=== PATIENT | female | born 1955 | race Caucasian/White ===

== ENCOUNTER 2016-11-17 08:35 | Day surgery (SDC) | payer OTHER ==
[~2016-11-17] VITALS: Ht 162.6 cm; Wt 113.4 kg
[~2016-11-17 08:35] MED LIST: BUPIVACAINE-EPI 0.5%-1:200000 50 ML VIAL. ONE; HYDROmorphone 2 MG/ML VIAL IV PRN; IOHEXOL 300 MG/ML 50 ML VIAL. ONE; IV RINGERS,LACTATED 1000ML 1,000 ML IV SCH; LIDOCAINE 1% 1 ML SYRINGE. ID PRN; MORPHINE SULFATE 2 MG/ML DISP.SYRIN. IV PRN; ONDANSETRON PF 4 MG/2 ML VIAL. IV PRN; PROCHLORPERAZINE 10 MG/2 ML VIAL. IV PRN; SURGICEL HEMOSTAT 4X8 EACH. ONE; fentaNYL PF VIAL 100 MCG/2 ML VIAL IV PRN
[2016-11-17] MEDS ORDERED: PARO20TA99 PO (09:08)
[2016-11-17] MEDS ORDERED: CRESTOR5 MG PO (09:08)
[2016-11-17] MEDS ORDERED: PROPOFOL 20 ML IV ONE (09:32)
[2016-11-17] MEDS ORDERED: LIDOCAINE 2% PF Vial for OR 5 ML VIAL. ONE (09:32)
[2016-11-17] MEDS ORDERED: DEXAMETHASONE SOD PHOS 20 MG/5 ML VIAL. ONE (09:32)
[2016-11-17] MEDS ORDERED: fentaNYL PF VIAL 100 MCG/2 ML VIAL ONE ×2 (09:32→11:34)
[2016-11-17] MEDS ORDERED: ONDANSETRON PF 4 MG/2 ML VIAL. ONE (09:32)
[2016-11-17] MEDS ORDERED: MIDAZOLAM HCL/PF 2 MG/2 ML VIAL. ONE (09:32)
[2016-11-17] MEDS ORDERED: ROCURONIUM 100 MG/10 ML VIAL. ONE (09:33)
[2016-11-17] MEDS ORDERED: PHENYLEPHRINE in 0.9% NACL PF 1 MG/10 ML DISP.SYRIN. IV ONE (11:27)
[2016-11-17] MEDS ORDERED: ePHEDrine PF IN SALINE 50 MG/5 ML DISP.SYRIN IV ONE (11:43)
[2016-11-17] MEDS ORDERED: GLYCOPYRROLATE 1 MG/5 ML VIAL. ONE (11:44)
[2016-11-17] MEDS ORDERED: NEOSTIGMINE 10 MG/10 ML VIAL. ONE (12:00)
--- NOTE | 2016-11-17 12:06 | RAD ---
Intraoperative cholangiogram, 11/17/2016: History: Cholecystectomy One spot film from surgery is present for review. Contrast has been injected into the cystic duct remnant. 0.39 minutes of fluoroscopy time was utilized. There is extravasation of contrast in the gallbladder fossa region. This may be on a technical basis related to the catheter insertion site in the cystic duct. A true biliary leak cannot be excluded on this single image. The common duct is of normal caliber. There is good flow of contrast into the duodenum. No filling defect is seen in the common duct to suggest a retained calculus. The intrahepatic ducts are incompletely opacified. IMPRESSION: 1. No retained calculus is identified in the common duct. 2. Contrast extravasation in the gallbladder fossa as described above.
[2016-11-17] MEDS ORDERED: OXYC-323 PO (12:22)
--- NOTE | 2016-11-17 12:28 | PDOC ---
BRIEF OPERATIVE NOTE Pre-Op Diagnosis #[id number] cholelithiasis lap martin, ioc k mónica cao ebl 25 ivf 1000 roscoe well to rr stable. JANNETH KELLY MD Nov 17, 2016 12:28
--- NOTE | 2016-11-17 12:55 | OP ---
DATE OF SURGERY: 11/17/2016 PREOPERATIVE DIAGNOSIS: Cholelithiasis. POSTOPERATIVE DIAGNOSIS: Cholelithiasis. PROCEDURE: Laparoscopic cholecystectomy with intraoperative cholangiogram. SURGEON: Janneth Kelly MD. ANESTHESIA: General. ESTIMATED BLOOD LOSS: 25 mL. INTRAVENOUS FLUIDS: 1000 mL. INDICATIONS: The patient is a 61-year-old female with abdominal symptoms consistent with biliary colic. FINDINGS: She had an intraoperative cholangiogram that showed no filling defects. She did have some extravasation on the initial images of contrast from the cystic ductotomy. The catheter was repositioned and the cholangiogram was obtained; however, the extravasated contrast continued to show on images. PROCEDURE IN DETAIL: After informed consent was obtained, the patient was taken to the operating room and placed in supine position. After adequate induction of general anesthesia, she was prepped and draped in usual sterile fashion. An umbilical skin incision was made with a scalpel, subcutaneous tissues with a hemostat. [facility] was used to grab the fascia and lift it anteriorly. Veress was used to gain access to the peritoneal cavity. Low opening pressures confirmed intraperitoneal placement of Veress. Pneumoperitoneum to 15 mmHg was established followed by placement of 5 mm port. A 5 mm 30 degree lens was inserted, which revealed good port placement. No evidence of entry trauma. She was placed head up, rotated towards her left. Three additional ports were placed under direct vision, 1 was an epigastric 11 mm port and 2 were 5 mm right lateral ports. The liver was large and due to her obesity, the gallbladder was small and supple. The fundus of the gallbladder was retracted over liver and slightly towards the right and the infundibulum was retracted towards the right and towards her toes to open the triangle of Calot. The leading peritoneal edge was scored with cautery medially and laterally and carried back towards the liver at the level of the infundibulum. [place] dissector was then used to dissect out the triangle of Calot. At the completion of dissection, 2 structures were seen leading directly to the gallbladder, 1 was a cystic artery, 1 was a cystic duct. The gallbladder dissected away from the cystic plate. The liver could be seen behind the gallbladder. The gallbladder had been carefully dissected away from part of the liver bed with [place] dissector. Two clips were placed on cystic artery proximally, 1 distally and the artery divided sharply. Clip was placed on cystic duct adjacent to the gallbladder. Ductotomy was made with scissors. Intraoperative cholangiogram was performed. There was contrast extravasation visible when the catheter was flushed at the ductotomy site where the catheter inserted into the duct. Cholangiogram images demonstrated this extravasation and there was not good filling of the proximal biliary tree. At this point, I reestablished laparoscopic vision and repositioned the catheter at the leak from the cystic ductotomy, was improved and then the cholangiogram repeated, which showed opacification of the common bile duct, common hepatic, left and right hepatics, intrahepatic radicals and free flow of contrast into the duodenum with no filling defects. The catheter was removed and the cholangiogram was interpreted as normal by myself. The radiologist mentioned the bile leak, but since this was visible on the ductotomy from where the catheter inserted, this was thought to explain the radiographic findings. There was no bile leakage in the gallbladder fossa. No other structures had been divided during the surgery at this point. The gallbladder was removed from the bed of liver with cautery in place in a laparoscopic bag and brought out through the epigastric incision. There was a small vessel in the gallbladder, liver bed interface that was feeding the gallbladder directly that was reinforced with an application of the clip shoe shiner. This was near the body of the gallbladder away from the triangle of Calot. This was done to maintain hemostasis. The gallbladder was placed in laparoscopic bag and was brought out through the epigastric incision. The right upper quadrant was irrigated. There was no bleeding or bile leakage noted. The clips were all securely in place and fascial closure device was used to close the fascia at the epigastric incision using 0 Vicryl suture. The ports removed under direct vision. They were hemostatic. Pneumoperitoneum was desufflated. Skin incisions were closed with 4-0 Monocryl in subcuticular fashion. Sterile dressings were placed. She tolerated the procedure well. There were no apparent complications. She was then transferred in stable condition to the recovery room. JANNETH KELLY MD DR: CHANG/live JOB#: [id number] / [id number] JULIANNA Wilson MD
[2016-11-17 13:44] VITALS: BP 109/40
--- NOTE | 2016-11-18 15:49 | PATHOLOGY ---
PATHOLOGY REPORT * * * * * * * * FINAL DIAGNOSIS: Gallbladder, "gallbladder and contents," cholecystectomy: - Chronic cholecystitis with cholelithiasis. - The attached lymph node reveals reactive changes ([facility]:mgr; 11/18/2016) REPORT ELECTRONICALLY SIGNED BY: Nilson Lugo M.D. DATE/TIME: 11/18/2016 15:48 * * * * * * * * GROSS PATHOLOGY: Received in formalin labeled "Glenys Osorio, gallbladder and contents," is a 6.3 x 2.5 x 1.2 cm, intact gallbladder with purple borrero, smooth serosal surfaces. Opening the gallbladder reveals pink-red, velvety, congested mucosa and an average wall thickness of 0.2 cm. Calculi are present ranging from 0.2-0.4 cm and no masses are noted grossly. Information Resources Director sections from the body and fundus are submitted along with the proximal margin in cassette A1. (JW; 11/17/2016) INITIAL CPT CODE(S): A; 21218 Professional services performed by [facility] [place] [address] Technical services performed by [facility] at [address] [place] [address]. SPECIMEN(S) RECEIVED: A.Gallbladder and contents CLINICAL HISTORY: Calculus of gallbladder without cholecystitis without obstruction PATIENT: GLENYS OSORIO /AGE: 8 1955 (Age: 61) PATIENT #: [id number] ALT CASE #: SPECIMEN COLLECTION DATE: 11/17/2016 SPECIMEN RECEIVED DATE: 11/17/2016 [facility] - [address] [place] [address] - PHONE: [phone] * * * END OF REPORT * * *
== END 2016-11-17 13:44 | disposition home or self-care (01) ==
LOC: SURG 08:35
PROVIDERS: ATTEND Surgery
DX: K80.10 Calculus of gallbladder with chronic cholecystitis without obstruction (principal); E78.00 Pure hypercholesterolemia, unspecified; E66.9 Obesity, unspecified; F41.9 Anxiety disorder, unspecified; Z68.44 Body mass index [BMI] 60.0-69.9, adult; Z72.89 Other problems related to lifestyle; Z88.6 Allergy status to analgesic agent; Z88.0 Allergy status to penicillin; Z87.440 Personal history of urinary (tract) infections
CPT/HCPCS: 47563; 74300; J0690; J1100; J2250; J2370; J2405; J2704; J2710; J3010; J3490; J7030; Q9967; 88304; J2001

== ENCOUNTER 2016-12-07 19:16 | Inpatient (IN) | payer OTHER ==
[~2016-12-07] VITALS: Ht 162.6 cm; Wt 115.4 kg
[~2016-12-07 19:16] MED LIST changes: -BUPIVACAINE-EPI 0.5%-1:200000 50 ML VIAL. ONE; +CRESTOR5 MG PO; -HYDROmorphone 2 MG/ML VIAL IV PRN; -IOHEXOL 300 MG/ML 50 ML VIAL. ONE; -IV RINGERS,LACTATED 1000ML 1,000 ML IV SCH; -LIDOCAINE 1% 1 ML SYRINGE. ID PRN; -MORPHINE SULFATE 2 MG/ML DISP.SYRIN. IV PRN; -ONDANSETRON PF 4 MG/2 ML VIAL. IV PRN; +OXYC-323 PO; +PARO20TA99 PO; -PROCHLORPERAZINE 10 MG/2 ML VIAL. IV PRN; -SURGICEL HEMOSTAT 4X8 EACH. ONE; -fentaNYL PF VIAL 100 MCG/2 ML VIAL IV PRN
[2016-12-07 19:55] LABS: BASO # 0.1 x10^3/uL (0.0-0.2); BASO % 1 % (0-3); EOS % 0 % (0-3); HEMATOCRIT 38.8 % (36.0-47.0); HEMOGLOBIN 12.9 g/dL (12.0-15.5); LYMPH # 1.5 x10^3/uL (1.0-4.8); LYMPH % 19 % (24-48); MEAN CORPUSCULAR HEMOGLOBIN 29 pg (25-35); MEAN CORPUSCULAR HGB CONC 33 g/dL (31-37); MEAN CORPUSCULAR VOLUME 88 fL (79-100); MONO % 6 % (0-9); NEUT % 74 % (31-73); PLATELET COUNT 291 x10^3/uL (140-400); RED BLOOD COUNT 4.42 x10^6/uL (3.50-5.40); RED CELL DISTRIBUTION WIDTH 13.6 % (11.5-14.5); WHITE BLOOD COUNT 8.1 x10^3/uL (4.0-11.0)
[2016-12-07] MEDS ORDERED: ONDANSETRON PF 4 MG/2 ML VIAL. IV ONE (20:15)
[2016-12-07] MEDS ORDERED: IV NORMAL SALINE 1000ML BAG 1,000 ML IV ONE (20:15)
[2016-12-07] MEDS ORDERED: LIDO:MAALOX:DONNATAL 1:1:1 15 ML SINGLE DOSE SWSW ONE (20:15)
[2016-12-07] MEDS ORDERED: MORPHINE SULFATE 10 MG/ML VIAL. IV ONE (20:15)
[2016-12-07] MEDS ORDERED: CONTRAST GIVEN MC PRN (20:30)
[2016-12-07] MEDS ORDERED: IOHEXOL 300 MG/ML 75 ML VIAL IV ONE (20:30)
[2016-12-07 21:34] LABS: CREATININE 0.9 mg/dL (0.6-1.0); GFR 63.4; POTASSIUM 3.5 mmol/L (3.5-5.1)
[2016-12-07 21:39] LABS: ALBUMIN 3.8 g/dL (3.4-5.0); MAGNESIUM 2.2 mg/dL (1.8-2.4); TOTAL BILIRUBIN 1.1 mg/dL (0.2-1.0); TOTAL PROTEIN 7.5 g/dL (6.4-8.2)
--- NOTE | 2016-12-07 22:36 | RAD ---
Exam performed: CT scan of the abdomen and pelvis with contrast Clinical Indication: Severe abdominal pain and vomiting mildly, recent cholecystectomy Date of Service: 12/07/2016 comparison: None available Technique: Contiguous helical acquisitions are obtained from the lung bases to the pelvis during intravenous administration of [75 mL of Isovue-320]. In addition oral contrast was also given. Sagittal and coronal reformatted images were obtained and reviewed. CT abdomen findings: The lung bases appear essentially clear. The visualized heart is normal There is a small approximately 1.0 cm cystic abnormality in the distal body of pancreas (best seen on axial image 30/102). Mild hepatic steatosis. The spleen appears unremarkable. Cholecystectomy Both adrenal glands and bilateral kidneys appear normal with symmetric excretion of contrast via both kidneys. The small bowel loops appear nondilated and unremarkable. Aorta is normal in caliber. There is no retroperitoneal lymphadenopathy or mass lesions. No bowel related inflammatory stranding is noted. Visualized appendix is normal. No obvious stranding is seen in the pericecal region. CT pelvis findings: The pelvic bowel loops are nondilated and unremarkable. The urinary bladder is partially distended and unremarkable. Uterus is anteverted. No adnexal masses. Interrogation of bone windows demonstrates grade 1 anterolisthesis of L5 over S1. Sagittal and coronal reformatted images were obtained and reviewed which demonstrate no additional findings. Impression abdomen and pelvis : 1. Approximately 1.8 cm cystic abnormality in the distal body of pancreas. While benign epithelial cyst is possible, however cystic neoplasm cannot be excluded. Evaluation with MRI abdomen using pancreatic protocol may be of additional benefit. 2. Mild hepatic steatosis PQRS Compliance Statement: One or more of the following individualized dose reduction techniques were utilized for this examination: 1. Automated exposure control 2. Adjustment of the mA and/or kV according to patient size 3. Use of iterative reconstruction technique Electronically signed by: Sabrina Cavazos MD (12/07/2016 10:33 PM) [facility]
[2016-12-08] VITALS (7 sets, daily range): BP systolic 105–138; BP diastolic 50–65
--- NOTE | 2016-12-08 00:07 | PHYS DOC ---
Past Medical History Past Medical History: High Cholesterol Past Surgical History: Cholecystectomy, Tonsillectomy Alcohol Use: Rarely Drug Use: None Adult General Chief Complaint Chief Complaint: NAUSEA/VOMITING/DIARRHA HPI HPI Patient is a 61 year old female presenting to the emergency department for evaluation of epigastric and right upper quadrant abdominal pain that rates towards her back that has been going on for the past several days and now it has become intolerable. She has had nausea and vomiting but normal stools. He describes the emesis as yellow bile. She had a cholecystectomy on November [address] Renteria. Patient denies any fevers chills dysuria hematuria. Patient is nontoxic-appearing but appears uncomfortable. Review of Systems Review of Systems Constitutional: Denies fever or chills [] Eyes: Denies change in visual acuity, redness, or eye pain [] HENT: Denies nasal congestion or sore throat [] Respiratory: Denies cough or shortness of breath [] Cardiovascular: No additional information not addressed in HPI [] GI: + abdominal pain, nausea, vomiting. No bloody stools or diarrhea [] : Denies dysuria or hematuria [] Musculoskeletal: + back pain Integument: Denies rash or skin lesions [] Neurologic: Denies headache, focal weakness or sensory changes [] Current Medications Current Medications Current Medications Medications (Trade) Dose Ordered Sig/Mike Start Time Stop Time Status Last Admin Dose Admin Info (Do NOT chart on this entry -- for MONITORING) 1 each PRN DAILY PRN 12/07/16 20:30 12/09/16 20:29 Iohexol (Omnipaque 300 Mg/ml) 75 ml 1X ONCE 12/07/16 20:30 12/07/16 20:31 DC 12/07/16 20:30 75 ML Morphine Sulfate 5 mg 1X ONCE 12/07/16 20:15 12/07/16 20:16 DC Multi-Ingredient Mouthwash/Gargle (Gi Cocktail Single Dose) 15 ml 1X ONCE 12/07/16 20:15 12/07/16 20:16 DC 12/07/16 20:12 15 ML Ondansetron HCl (Zofran) 8 mg 1X ONCE 12/07/16 20:15 12/07/16 20:16 DC 12/07/16 19:55 8 MG Promethazine HCl 12.5 mg/Sodium Chloride 50.5 ml @ 101 mls/hr 1X ONCE 12/08/16 00:00 12/08/16 00:29 UNV Sodium Chloride 1,000 ml @ 1,000 mls/hr 1X ONCE 12/07/16 20:15 12/07/16 21:14 DC 12/07/16 19:55 1,000 MLS/HR Allergies Allergies Allergies Coded Allergies Type Severity Reaction Last Updated Verified Penicillins Allergy Intermediate Rash 11/17/16 Yes aspirin Allergy Intermediate Unknown 11/17/16 Yes ibuprofen Allergy Intermediate Hives 11/17/16 Yes Physical Exam Physical Exam Constitutional: Well developed, well nourished, no acute distress, non-toxic appearance. [] HENT: Normocephalic, atraumatic, bilateral external ears normal, oropharynx moist, no oral exudates, nose normal. [] Eyes: PERRLA, EOMI, conjunctiva normal, no discharge. [] Neck: Normal range of motion, no tenderness, supple, no stridor. [] Cardiovascular:Heart rate regular rhythm, no murmur [] Lungs & Thorax: Bilateral breath sounds clear to auscultation [] Abdomen: Bowel sounds normal, soft, + RUQ and Epigastric tenderness, no rebound or guarding, no masses, no pulsatile masses. [] Skin: Warm, dry, no erythema, no rash. [] Back: No tenderness, no CVA tenderness. [] Extremities: No tenderness, no cyanosis, no clubbing, ROM intact, no edema. [] Neurologic: Alert and oriented X 3, normal motor function, normal sensory function, no focal deficits noted. [] Current Patient Data Vital Signs Vital Signs Date Time Temp Pulse Resp B/P (MAP) Pulse Ox O2 Delivery O2 Flow Rate FiO2 12/07/16 22:30 68 18 129/62 (84) 97 Room Air 12/07/16 19:27 99.3 99.3 Lab Values Laboratory Tests Test 12/07/16 19:41 White Blood Count 8.1 x10^3/uL (4.0-11.0) Red Blood Count 4.42 x10^6/uL (3.50-5.40) Hemoglobin 12.9 g/dL (12.0-15.5) Hematocrit 38.8 % (36.0-47.0) Mean Corpuscular Volume 88 fL (79-100) Mean Corpuscular Hemoglobin 29 pg (25-35) Mean Corpuscular Hemoglobin Concent 33 g/dL (31-37) Red Cell Distribution Width 13.6 % (11.5-14.5) Platelet Count 291 x10^3/uL (140-400) Neutrophils (%) (Auto) 74 % (31-73) H Lymphocytes (%) (Auto) 19 % (24-48) L Monocytes (%) (Auto) 6 % (0-9) Eosinophils (%) (Auto) 0 % (0-3) Basophils (%) (Auto) 1 % (0-3) Neutrophils # (Auto) 6.0 x10^3uL (1.8-7.7) Lymphocytes # (Auto) 1.5 x10^3/uL (1.0-4.8) Monocytes # (Auto) 0.5 x10^3/uL (0.0-1.1) Eosinophils # (Auto) 0.0 x10^3/uL (0.0-0.7) Basophils # (Auto) 0.1 x10^3/uL (0.0-0.2) Sodium Level 142 mmol/L (136-145) Potassium Level 3.5 mmol/L (3.5-5.1) Chloride Level 106 mmol/L (98-107) Carbon Dioxide Level 28 mmol/L (21-32) Anion Gap 8 (6-14) Blood Urea Nitrogen 15 mg/dL (7-20) Creatinine 0.9 mg/dL (0.6-1.0) Estimated GFR (Cockcroft-Gault) 63.4 BUN/Creatinine Ratio 17 (6-20) Glucose Level 135 mg/dL (70-99) H Calcium Level 10.0 mg/dL (8.5-10.1) Magnesium Level 2.2 mg/dL (1.8-2.4) Total Bilirubin 1.1 mg/dL (0.2-1.0) H Aspartate Amino Transferase (AST) 627 U/L (15-37) H Alanine Aminotransferase (ALT) 711 U/L (14-59) H Alkaline Phosphatase 184 U/L (46-116) H Troponin I Quantitative < 0.017 ng/mL (0.000-0.055) Total Protein 7.5 g/dL (6.4-8.2) Albumin 3.8 g/dL (3.4-5.0) Albumin/Globulin Ratio 1.0 (1.0-1.7) Lipase 280 U/L (73-393) Laboratory Tests 12/07/16 19:41 Laboratory Tests 12/07/16 19:41 EKG EKG [] Radiology/Procedures Radiology/Procedures Exam performed: CT scan of the abdomen and pelvis with contrast Clinical Indication: Severe abdominal pain and vomiting mildly, recent cholecystectomy Date of Service: 12/07/2016 comparison: None available Technique: Contiguous helical acquisitions are obtained from the lung bases to the pelvis during intravenous administration of [75 mL of Isovue-320]. In addition oral contrast was also given. Sagittal and coronal reformatted images were obtained and reviewed. CT abdomen findings: The lung bases appear essentially clear. The visualized heart is normal There is a small approximately 1.0 cm cystic abnormality in the distal body of pancreas (best seen on axial image 30/102). Mild hepatic steatosis. The spleen appears unremarkable. Cholecystectomy Both adrenal glands and bilateral kidneys appear normal with symmetric excretion of contrast via both kidneys. The small bowel loops appear nondilated and unremarkable. Aorta is normal in caliber. There is no retroperitoneal lymphadenopathy or mass lesions. No bowel related inflammatory stranding is noted. Visualized appendix is normal. No obvious stranding is seen in the pericecal region. CT pelvis findings: The pelvic bowel loops are nondilated and unremarkable. The urinary bladder is partially distended and unremarkable. Uterus is anteverted. No adnexal masses. Interrogation of bone windows demonstrates grade 1 anterolisthesis of L5 over S1. Sagittal and coronal reformatted images were obtained and reviewed which demonstrate no additional findings. Impression abdomen and pelvis : 1. Approximately 1.8 cm cystic abnormality in the distal body of pancreas. While benign epithelial cyst is possible, however cystic neoplasm cannot be excluded. Evaluation with MRI abdomen using pancreatic protocol may be of additional benefit. 2. Mild hepatic steatosis PQRS Compliance Statement: One or more of the following individualized dose reduction techniques were utilized for this examination: 1. Automated exposure control 2. Adjustment of the mA and/or kV according to patient size 3. Use of iterative reconstruction technique Electronically signed by: Sabrina Cavazos MD (12/07/2016 10:33 PM) [facility] DICTATED and SIGNED BY: SABRINA CAVAZOS MD DATE: 12/07/162225 Course & Med Decision Making Course & Med Decision Making Patient's pain somewhat improved however she says she is still uncomfortable. I do not have a great excavation for the transaminitis or the pancreatic mass that is visualized on CT. To the patient about inpatient versus outpatient treatment and she said that she is uncomfortable going home given how much pain she is having. Patient will be admitted for further pain control evaluation and treatment. Patient admitted in stable condition. Dragon Disclaimer Dragon Disclaimer This electronic medical record was generated, in whole or in part, using a voice recognition dictation system. Departure Departure Impression: Primary Impression: Pancreatic mass Additional Impressions: Transaminitis Abdominal pain Disposition: ADMITTED INPATIENT Admitting Physician: Kirstin Foley Condition: STABLE Referrals: KIRSTIN FOLEY MD (PCP) Problem Qualifiers AGAPITO YOUNG DO Dec 08, 2016 00:07
[2016-12-08] MEDS ORDERED: fentaNYL PF VIAL 100 MCG/2 ML VIAL IV PRN (00:15)
[2016-12-08] MEDS ORDERED: ONDANSETRON PF 4 MG/2 ML VIAL. IV PRN (00:15)
[2016-12-08] MEDS ORDERED: PROMETHAZINE 12.5 MG in IV NORMAL SALINE 50ML 50 ML IV ONE (00:30)
--- NOTE | 2016-12-08 06:25 | EKG ---
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
--- NOTE | 2016-12-08 08:40 | PDOC2 ---
GI CONSULT Reason For Consult: Transaminitis, pancreatic mass HPI: HPI: 61 y/o female admitted through the ER. Underwent cholecystectomy on 11/17/16. Prior to that had abd US in [place] for sweating and vomiting w/ minimal abd discomfort that reportedly showed cholelithiasis. Gallbladder pathology showed chronic cholecystitis w/ cholelithiasis. IOC was normal. [place] well after surgery - didn't even need pain meds. The night before last, awoke at 1:00 a.m. w/ some upper abd discomfort and vomiting. Emesis contained food and bile , had burning in her throat. Was not able to tolerate much PO for the next 24 hours. Called her surgeon's office, was advised to come to the ER for possible dehydration. ER labs showed normal WBC and lipase w/ elevated LFTs including bili 1.1, AST 627, ALT 711, and Alk Phos 184. CT A/P showed 1.8cm cystic abnormality in the distal body of the pancreas and also noted hepatic steatosis. Currently feeling better w/ just minimal discomfort under ribs. She has labs drawn twice yearly through her work; at one point recalls ALT or AST being minimally elevated; her primary doctor at the time told her not to worry. H/o HLD on statin. Only occasional alcohol use. No h/o blood transfusion, does have tattoo. Also had sick contact w/ "stomach flu" at work. When she was younger she had some issues w/ reflux but this is no longer bothersome. No dysphagia, weight loss, diarrhea, constipation, hematemesis, melena, or hematochezia. Had a large BM prior to onset of symptoms, also had two smaller (formed) stools yesterday. No previous EGD or colonoscopy. No pancreas history. She thinks she had a CT scan of her abdomen a few years ago. PMH: PMH: HLD, anxiety, tonsillectomy, cholecystectomy FH: Family History: Cancer (colon - grandmother), Other (half-sister has reflux) Social History: Smoke: No ALCOHOL: occassional Drugs: None ROS: GEN: Denies fevers, chills, sweats HEENT: Denies blurred vision, sore throat CV: Denies chest pain RESP: Denies shortness of air, cough GI: Per HPI : Denies hematuria, dysuria ENDO: Denies weight changes NEURO: Denies confusion, dizziness MSK: Denies weakness, joint pain/swelling SKIN: Denies jaundice, pruritus Vitals: Vitals: Vital Signs Date Time Temp Pulse Resp B/P (MAP) Pulse Ox O2 Delivery O2 Flow Rate FiO2 12/08/16 07:00 98.2 68 18 105/50 (68) 94 Room Air 98.2 Labs: Labs: Laboratory Tests Test 12/07/16 19:41 White Blood Count 8.1 x10^3/uL (4.0-11.0) Red Blood Count 4.42 x10^6/uL (3.50-5.40) Hemoglobin 12.9 g/dL (12.0-15.5) Hematocrit 38.8 % (36.0-47.0) Mean Corpuscular Volume 88 fL (79-100) Mean Corpuscular Hemoglobin 29 pg (25-35) Mean Corpuscular Hemoglobin Concent 33 g/dL (31-37) Red Cell Distribution Width 13.6 % (11.5-14.5) Platelet Count 291 x10^3/uL (140-400) Neutrophils (%) (Auto) 74 % (31-73) Lymphocytes (%) (Auto) 19 % (24-48) Monocytes (%) (Auto) 6 % (0-9) Eosinophils (%) (Auto) 0 % (0-3) Basophils (%) (Auto) 1 % (0-3) Neutrophils # (Auto) 6.0 x10^3uL (1.8-7.7) Lymphocytes # (Auto) 1.5 x10^3/uL (1.0-4.8) Monocytes # (Auto) 0.5 x10^3/uL (0.0-1.1) Eosinophils # (Auto) 0.0 x10^3/uL (0.0-0.7) Basophils # (Auto) 0.1 x10^3/uL (0.0-0.2) Sodium Level 142 mmol/L (136-145) Potassium Level 3.5 mmol/L (3.5-5.1) Chloride Level 106 mmol/L (98-107) Carbon Dioxide Level 28 mmol/L (21-32) Anion Gap 8 (6-14) Blood Urea Nitrogen 15 mg/dL (7-20) Creatinine 0.9 mg/dL (0.6-1.0) Estimated GFR (Cockcroft-Gault) 63.4 BUN/Creatinine Ratio 17 (6-20) Glucose Level 135 mg/dL (70-99) Calcium Level 10.0 mg/dL (8.5-10.1) Magnesium Level 2.2 mg/dL (1.8-2.4) Total Bilirubin 1.1 mg/dL (0.2-1.0) Aspartate Amino Transf (AST/SGOT) 627 U/L (15-37) Alanine Aminotransferase (ALT/SGPT) 711 U/L (14-59) Alkaline Phosphatase 184 U/L (46-116) Troponin I Quantitative < 0.017 ng/mL (0.000-0.055) Total Protein 7.5 g/dL (6.4-8.2) Albumin 3.8 g/dL (3.4-5.0) Albumin/Globulin Ratio 1.0 (1.0-1.7) Lipase 280 U/L (73-393) Allergies: Coded Allergies: Penicillins (Verified Allergy, Intermediate, Rash, 11/17/16) aspirin (Verified Allergy, Intermediate, Unknown, 11/17/16) ibuprofen (Verified Allergy, Intermediate, Hives, 11/17/16) Medications: Current Medications Medications (Trade) Dose Ordered Sig/Mike Route PRN Reason Start Time Stop Time Status Last Admin Dose Admin Sodium Chloride 1,000 ml @ 1,000 mls/hr 1X ONCE IV 12/07/16 20:15 12/07/16 21:14 DC 12/07/16 19:55 Ondansetron HCl (Zofran) 8 mg 1X ONCE IV 12/07/16 20:15 12/07/16 20:16 DC 12/07/16 19:55 Multi-Ingredient Mouthwash/Gargle (Gi Cocktail Single Dose) 15 ml 1X ONCE SWSW 12/07/16 20:15 12/07/16 20:16 DC 12/07/16 20:12 Iohexol (Omnipaque 300 Mg/ml) 75 ml 1X ONCE IV 12/07/16 20:30 12/07/16 20:31 DC 12/07/16 20:30 Promethazine HCl 12.5 mg/Sodium Chloride 50.5 ml @ 101 mls/hr 1X ONCE IV 12/08/16 00:30 12/08/16 00:59 DC 12/08/16 00:18 Imaging: Imaging: CT A/P 12/07/16 w/ IV contrast Impression abdomen and pelvis : 1. Approximately 1.8 cm cystic abnormality in the distal body of pancreas. While benign epithelial cyst is possible, however cystic neoplasm cannot be excluded. Evaluation with MRI abdomen using pancreatic protocol may be of additional benefit. 2. Mild hepatic steatosis PE: GEN: NAD HEENT: Atraumatic, PERRL LUNGS: CTAB HEART: RRR ABD: NABS, soft, overweight, not particularly tender currently EXTREMITY: No edema SKIN: No rashes, no jaundice NEURO/PSYCH: A & O 3 A/P: A/P: Upper abd pain w/ n/v Abnormal LFTs and CT -bili 1.1, AST 627, ALT 711, Alk Phos 184, lipase WNL -CT A/P: 1.8cm cystic abnormality in the distal body of the pancreas, hepatic steatosis -h/o HLD on statin, perhaps h/o minimal elevation in LFTs noted on routine labs at one point -had US prior to recent cholecystectomy S/p cholecystectomy w/ normal IOC 11/17/16 H/o GERD - no longer bothersome CRC screen -no previous colonoscopy, GM had colon cancer -- 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 Consider EBV, CMV if indicated. PAUL LOONEY Dec 08, 2016 08:40
--- NOTE | 2016-12-08 08:50 | PDOC1 ---
History and Physical Date of Admission Date of Admission DATE: 12/07/16 Source Source: Patient History of Present Illness History of Present Illness Pt says that she woke up Tuesday with stomach pain and vomiting that continued throughout the day. Pt had same day cholecystectomy 11/17/16. Says that she had been doing pretty well. Initially did not have much of an appetite but after a couple of days was eating normally. Tuesday went to the hospital to see her mother who was having hip surgery. Had soup at the hospital and had slovenian sausage, etc when she came home. [place] fine until she woke up the next morning. Pain was in the epigastric area. Pain resolved once she came to the ER. Says that she was told a couple of years ago by her previous physician that her liver enzymes were mildly elevated but it was nothing to worry about. On pt's operative cholangiogram contrast extravasation was seen in the gallbladder fossa, but did not appear to be a biliary leak. Past Medical History Cardiovascular: Hyperlipidemia Pulmonary: No pertinent hx GI: No pertinent hx Heme/Onc: No pertinent hx Hepatobiliary: No pertinent hx Psych: Depression Rheumatologic: No pertinent hx Infectious disease: No pertinent hx ENT: No pertinent hx Renal/: No pertinent hx Endocrine: No pertinent hx Dermatology: No pertinent hx Past Surgical History Past Surgical History: Cholecystectomy, Tonsillectomy Family History Family History: Cancer (Colon), Diabetes, Heart Disease Social History Smoke: Quit (experimental in [place]) ALCOHOL: rare Drugs: None Current Problem List Problem List Problems Medical Problems: (1) Abdominal pain Status: Acute (2) Pancreatic mass Status: Acute (3) Transaminitis Status: Acute Problems: Current Medications Current Medications Current Medications Sodium Chloride 1,000 ml @ 1,000 mls/hr 1X ONCE IV Last administered on 19:55; Start 12/07/16 at 20:15; Stop 12/07/16 at 21:14; Status DC Ondansetron HCl (Zofran) 8 mg 1X ONCE IV Last administered on 12/07/16 19:55 ; Start 12/07/16 at 20:15; Stop 12/07/16 at 20:16; Status DC Morphine Sulfate 5 mg 1X ONCE IV ; Start 12/07/16 at 20:15; Stop 12/07/16 at 20 :16; Status DC Multi-Ingredient Mouthwash/Gargle (Gi Cocktail Single Dose) 15 ml 1X ONCE SWSW Last administered on 12/07/16 20:12; Start 12/07/16 at 20:15; Stop 12/07/16 at 20:16; Status DC Iohexol (Omnipaque 300 Mg/ml) 75 ml 1X ONCE IV Last administered on 12/07/16 20:30; Start 12/07/16 at 20:30; Stop 12/07/16 at 20:31; Status DC Info (Do NOT chart on this entry -- for MONITORING) 1 each PRN DAILY PRN MC SEE COMMENTS; Start 12/07/16 at 20:30; Stop 12/09/16 at 20:29 Promethazine HCl 12.5 mg/Sodium Chloride 50.5 ml @ 101 mls/hr 1X ONCE IV Last administered on 12/08/16 00:18; Start 12/08/16 at 00:30; Stop 12/08/16 at 00:59; Status DC Ondansetron HCl (Zofran) 4 mg PRN Q8HRS PRN IV NAUSEA/VOMITING; Start 12/08/16 at 00:15; Stop 12/09/16 at 00:14 Fentanyl Citrate (Fentanyl 2ml Vial) 50 mcg PRN Q2HR PRN IV SEVERE PAIN; Start 12/08/16 at 00:15; Stop 12/09/16 at 00:14 Info (Do NOT chart on this placeholder) 1 each 1X ONCE MC ; Start 12/08/16 at 09:00; Stop 12/08/16 at 09:01; Status UNV Influenza Virus Vaccine Quadrival (Fluarix Quad [id number] Syringe) 0.5 ml ONCE ONCE VAX IM ; Start 12/08/16 at 09:00; Stop 12/08/16 at 09:01 Active Scripts Active Reported Crestor (Rosuvastatin Calcium) 5 Mg Tablet 5 Mg PO HS Paxil (Paroxetine Hcl) 20 Mg Tablet 20 Mg PO DAILY Allergies Allergies: Coded Allergies: Penicillins (Verified Allergy, Intermediate, Rash, 11/17/16) aspirin (Verified Allergy, Intermediate, Unknown, 11/17/16) ibuprofen (Verified Allergy, Intermediate, Hives, 11/17/16) ROS General: No: Chills, Night Sweats PSYCHOLOGICAL ROS: No: Anxiety, Depression Eyes: No Decreased vision, No Eye Pain HEENT: No: Nasal congestion, Sore Throat ALLERGY AND IMMUNOLOGY: No: Hives, Post Nasal Drip Hematological and Lymphatic: No: Bleeding Problems, Brusing Respiratory: No: Cough, Shortness of breath Cardiovascular: No Chest Pain, No Edema Gastrointestinal: Yes Nausea, Yes Vomiting, Yes Abdominal Pain, No Diarrhea, No Constipation Genitourinary: No Dysuria, No Urgency Musculoskeletal: No Joint Pain, No Muscle Pain Neurological: No Impaired Coord/balance, No Numbness/Tingling Skin: No Rash, No Skin Lesion Changes Physical Exam General: Alert, Oriented X3, Cooperative, No acute distress HEENT: Atraumatic, PERRLA, EOMI, Mucous membr. moist/pink Lungs: Clear to auscultation, Normal air movement Heart: RRR, no rubs, no gallops, no murmurs Abdomen: Normal bowel sounds, Soft, No tenderness, No hepatosplenomegaly Extremities: No clubbing, No cyanosis, No edema Skin: No rashes, No significant lesion Neuro: Normal speech, Cranial nerves 3-12 NL Psych/Mental Status: Mental status NL, Mood NL Vitals Vitals Vital Signs Date Time Temp Pulse Resp B/P (MAP) Pulse Ox O2 Delivery O2 Flow Rate FiO2 12/08/16 07:00 98.2 68 18 105/50 (68) 94 Room Air 98.2 Labs Labs Laboratory Tests Test 12/07/16 19:41 White Blood Count 8.1 x10^3/uL (4.0-11.0) Red Blood Count 4.42 x10^6/uL (3.50-5.40) Hemoglobin 12.9 g/dL (12.0-15.5) Hematocrit 38.8 % (36.0-47.0) Mean Corpuscular Volume 88 fL (79-100) Mean Corpuscular Hemoglobin 29 pg (25-35) Mean Corpuscular Hemoglobin Concent 33 g/dL (31-37) Red Cell Distribution Width 13.6 % (11.5-14.5) Platelet Count 291 x10^3/uL (140-400) Neutrophils (%) (Auto) 74 % (31-73) Lymphocytes (%) (Auto) 19 % (24-48) Monocytes (%) (Auto) 6 % (0-9) Eosinophils (%) (Auto) 0 % (0-3) Basophils (%) (Auto) 1 % (0-3) Neutrophils # (Auto) 6.0 x10^3uL (1.8-7.7) Lymphocytes # (Auto) 1.5 x10^3/uL (1.0-4.8) Monocytes # (Auto) 0.5 x10^3/uL (0.0-1.1) Eosinophils # (Auto) 0.0 x10^3/uL (0.0-0.7) Basophils # (Auto) 0.1 x10^3/uL (0.0-0.2) Sodium Level 142 mmol/L (136-145) Potassium Level 3.5 mmol/L (3.5-5.1) Chloride Level 106 mmol/L (98-107) Carbon Dioxide Level 28 mmol/L (21-32) Anion Gap 8 (6-14) Blood Urea Nitrogen 15 mg/dL (7-20) Creatinine 0.9 mg/dL (0.6-1.0) Estimated GFR (Cockcroft-Gault) 63.4 BUN/Creatinine Ratio 17 (6-20) Glucose Level 135 mg/dL (70-99) Calcium Level 10.0 mg/dL (8.5-10.1) Magnesium Level 2.2 mg/dL (1.8-2.4) Total Bilirubin 1.1 mg/dL (0.2-1.0) Aspartate Amino Transf (AST/SGOT) 627 U/L (15-37) Alanine Aminotransferase (ALT/SGPT) 711 U/L (14-59) Alkaline Phosphatase 184 U/L (46-116) Troponin I Quantitative < 0.017 ng/mL (0.000-0.055) Total Protein 7.5 g/dL (6.4-8.2) Albumin 3.8 g/dL (3.4-5.0) Albumin/Globulin Ratio 1.0 (1.0-1.7) Lipase 280 U/L (73-393) Laboratory Tests Test 12/07/16 19:41 White Blood Count 8.1 x10^3/uL (4.0-11.0) Red Blood Count 4.42 x10^6/uL (3.50-5.40) Hemoglobin 12.9 g/dL (12.0-15.5) Hematocrit 38.8 % (36.0-47.0) Mean Corpuscular Volume 88 fL (79-100) Mean Corpuscular Hemoglobin 29 pg (25-35) Mean Corpuscular Hemoglobin Concent 33 g/dL (31-37) Red Cell Distribution Width 13.6 % (11.5-14.5) Platelet Count 291 x10^3/uL (140-400) Neutrophils (%) (Auto) 74 % (31-73) Lymphocytes (%) (Auto) 19 % (24-48) Monocytes (%) (Auto) 6 % (0-9) Eosinophils (%) (Auto) 0 % (0-3) Basophils (%) (Auto) 1 % (0-3) Neutrophils # (Auto) 6.0 x10^3uL (1.8-7.7) Lymphocytes # (Auto) 1.5 x10^3/uL (1.0-4.8) Monocytes # (Auto) 0.5 x10^3/uL (0.0-1.1) Eosinophils # (Auto) 0.0 x10^3/uL (0.0-0.7) Basophils # (Auto) 0.1 x10^3/uL (0.0-0.2) Sodium Level 142 mmol/L (136-145) Potassium Level 3.5 mmol/L (3.5-5.1) Chloride Level 106 mmol/L (98-107) Carbon Dioxide Level 28 mmol/L (21-32) Anion Gap 8 (6-14) Blood Urea Nitrogen 15 mg/dL (7-20) Creatinine 0.9 mg/dL (0.6-1.0) Estimated GFR (Cockcroft-Gault) 63.4 BUN/Creatinine Ratio 17 (6-20) Glucose Level 135 mg/dL (70-99) Calcium Level 10.0 mg/dL (8.5-10.1) Magnesium Level 2.2 mg/dL (1.8-2.4) Total Bilirubin 1.1 mg/dL (0.2-1.0) Aspartate Amino Transf (AST/SGOT) 627 U/L (15-37) Alanine Aminotransferase (ALT/SGPT) 711 U/L (14-59) Alkaline Phosphatase 184 U/L (46-116) Troponin I Quantitative < 0.017 ng/mL (0.000-0.055) Total Protein 7.5 g/dL (6.4-8.2) Albumin 3.8 g/dL (3.4-5.0) Albumin/Globulin Ratio 1.0 (1.0-1.7) Lipase 280 U/L (73-393) VTE Prophylaxis Ordered VTE Prophylaxis Devices: Yes VTE Pharmacological Prophylaxi: No Assessment/Plan Assessment/Plan Pt is a 61yo CF admitted for uncontrolled abdominal pain, transaminitis and cystic abnormality found in pancreas 1)Abdominal pain- currently resolved. Pt currently NPO 2)Transaminitis with possible pancreatic cyst- GI following. Recent gallbladder surgery; cholangiogram showed contrast extravasation in gallbladder fossa but did not feel that it was a biliary leak. MRCP has been ordered. 3)HLD- will hold pt's Crestor for now 4)Depression- will hold pt's Paxil for now 5)Hyperglycemia- HbA1C pending. DIRK TEIXEIRA MD Dec 08, 2016 08:50
[2016-12-08] MEDS ORDERED: INFLUENZA VAX SCREEN BY RX. MC ONE (09:00)
[2016-12-08] MEDS ORDERED: FLU VACC QS2017-18 (36MOS+)/PF 0.5 ML SYRINGE. VAX IM ONE (09:00)
[2016-12-08] MEDS: FAMOTIDINE 20 MG/2 ML VIAL IVP SCH ×2 (09:53→20:37)
--- NOTE | 2016-12-08 13:49 | RAD ---
MRI and MRCP of the abdomen Indication: Elevated liver function tests. Abnormality seen on previous CT from 12/07/2016. Technique: Axial and coronal T2, axial and coronal T2 fat sat, axial in and out T1-weighted image sequences were obtained without IV contrast. 2-D and 3-D MRCP was performed using respiratory gating. Comparison: CT from 12/07/2016 Findings: Limited study due to lack of IV contrast. Heart is normal in size. No pericardial or pleural effusion. There is significant drop of signal out of phase imaging when compared in phase images suggesting diffuse hepatic steatosis. No abnormal T2 signal in the liver. Status post cholecystectomy. Mild central intrahepatic biliary dilation. CBD measures 6 mm without filling defects and within normal limits in post cholecystectomy patients. There is a 2.0 x 1.6 x 1.2 cm T2 hyperintense/T1 hypointense cystic lesion in the tail of the pancreas. No mural nodularity or septations noted. No clear communication with the main pancreatic duct noted. Scattered foci of high T2 signal is seen in the pancreatic head. No pancreatic duct dilation. No peripancreatic inflammatory changes. Adrenal glands show no nodularity. Spleen is top normal in size without T2 abnormality. The T2 corticomedullary the physician is preserved in the kidneys. 1.4 cm T2 hyperintense lesion within left kidney likely simple cysts. No hydronephrosis. No bowel obstruction. No abnormal T2 signal in the bones. Impression: 1. Cystic lesion in the pancreatic tail incompletely evaluated due to lack of IV contrast, however shows no suspicious features. Differential diagnoses include pseudocyst, lymphoepithelial cyst, side branch IPMN. Several other scattered foci of T2 hyperintensity suggests side branch IPMN. 2. Moderate to severe hepatic steatosis.
[2016-12-09 00:14] LABS: HEP A IGM ABDY Negative (Negative)
[2016-12-09 03:00] VITALS: BP 145/68
[2016-12-09 04:19] LABS: BASO % 1 % (0-3); EOS % 1 % (0-3); HEMATOCRIT 38.7 % (36.0-47.0); LYMPH # 1.5 x10^3/uL (1.0-4.8); LYMPH % 24 % (24-48); MEAN CORPUSCULAR HEMOGLOBIN 29 pg (25-35); MEAN CORPUSCULAR HGB CONC 34 g/dL (31-37); MEAN CORPUSCULAR VOLUME 87 fL (79-100); MONO % 7 % (0-9); NEUT % 67 % (31-73); PLATELET COUNT 254 x10^3/uL (140-400); RED BLOOD COUNT 4.43 x10^6/uL (3.50-5.40); RED CELL DISTRIBUTION WIDTH 13.9 % (11.5-14.5); WHITE BLOOD COUNT 6.1 x10^3/uL (4.0-11.0)
[2016-12-09 04:48] LABS: ALBUMIN 3.6 g/dL (3.4-5.0); ALBUMIN/GLOBULIN RATIO 0.9 (1.0-1.7); CALCIUM 9.6 mg/dL (8.5-10.1); CREATININE 0.8 mg/dL (0.6-1.0); GFR 72.7; POTASSIUM 3.8 mmol/L (3.5-5.1); TOTAL BILIRUBIN 2.7 mg/dL (0.2-1.0); TOTAL PROTEIN 7.6 g/dL (6.4-8.2)
[2016-12-09 07:00] VITALS: BP 118/62
--- NOTE | 2016-12-09 07:52 | PDOC ---
SUBJECTIVE Subjective Pt says that she is doing okay. Started on clear liquids yesterday and did okay ; had some nausea a little bit later last night but did not vomit. Denies abdominal pain. OBJECTIVE Vital Signs Vital Signs Date Time Temp Pulse Resp B/P (MAP) Pulse Ox O2 Delivery O2 Flow Rate FiO2 12/09/16 03:00 97.5 64 20 145/68 (93) 94 97.5 12/08/16 23:00 98.5 65 19 119/56 (77) 98 Room Air 98.5 12/08/16 20:00 Room Air 12/08/16 19:00 98.2 58 18 126/52 (76) 96 Room Air 98.2 12/08/16 15:00 98.0 65 18 138/65 (89) 97 Room Air 98.0 12/08/16 10:52 98.8 70 18 129/50 (76) 97 Room Air 98.8 12/08/16 08:00 Room Air PHYSICAL EXAM Physical Exam General: Alert, Oriented X3, Cooperative, No acute distress HEENT: Atraumatic, PERRLA, EOMI, Mucous membr. moist/pink Lungs: Clear to auscultation, Normal air movement Heart: RRR, no rubs, no gallops, no murmurs Abdomen: Normal bowel sounds, Soft, No tenderness, No hepatosplenomegaly Extremities: No clubbing, No cyanosis, No edema Skin: No rashes, No significant lesion Neuro: Normal speech, Cranial nerves 3-12 NL Psych/Mental Status: Mental status NL, Mood NL ASSESSMENT/PLAN Assessment/Plan Pt is a 61yo CF admitted for uncontrolled abdominal pain, transaminitis and cystic abnormality found in pancreas 1)Abdominal pain- currently resolved. Pt tolerated CLD yesterday 2)Transaminitis- worsening 3)Cystic lesion on pancreas- MRCP limited without contrast but no suspicious features seen. DDx incudes pseudo cyst, lymphoepithelial cyst, side brance IPMN which is favored based off imaging results. Pt had recent gallbladder surgery; cholangiogram showed contrast extravasation in gallbladder fossa but did not feel that it was a biliary leak. GI following. Pt may need EUS 4)Hepatic steatosis 5)HLD- will hold pt's Crestor for now 6)Depression- pt's Paxil resumed 7)Hyperglycemia- HbA1C pending. Problems: COMMENT Lab Laboratory Tests Test 12/08/16 08:55 12/09/16 03:40 Hepatitis A IgM Antibody Negative (Negative) Hepatitis B Surface Antigen Negative (Negative) Hepatitis B Core IgM Antibody Negative (Negative) Hepatitis C Antibody <0.1 s/co ratio White Blood Count 6.1 x10^3/uL (4.0-11.0) Red Blood Count 4.43 x10^6/uL (3.50-5.40) Hemoglobin 13.0 g/dL (12.0-15.5) Hematocrit 38.7 % (36.0-47.0) Mean Corpuscular Volume 87 fL (79-100) Mean Corpuscular Hemoglobin 29 pg (25-35) Mean Corpuscular Hemoglobin Concent 34 g/dL (31-37) Red Cell Distribution Width 13.9 % (11.5-14.5) Platelet Count 254 x10^3/uL (140-400) Neutrophils (%) (Auto) 67 % (31-73) Lymphocytes (%) (Auto) 24 % (24-48) Monocytes (%) (Auto) 7 % (0-9) Eosinophils (%) (Auto) 1 % (0-3) Basophils (%) (Auto) 1 % (0-3) Neutrophils # (Auto) 4.1 x10^3uL (1.8-7.7) Lymphocytes # (Auto) 1.5 x10^3/uL (1.0-4.8) Monocytes # (Auto) 0.4 x10^3/uL (0.0-1.1) Eosinophils # (Auto) 0.0 x10^3/uL (0.0-0.7) Basophils # (Auto) 0.0 x10^3/uL (0.0-0.2) Sodium Level 141 mmol/L (136-145) Potassium Level 3.8 mmol/L (3.5-5.1) Chloride Level 105 mmol/L (98-107) Carbon Dioxide Level 30 mmol/L (21-32) Anion Gap 6 (6-14) Blood Urea Nitrogen 11 mg/dL (7-20) Creatinine 0.8 mg/dL (0.6-1.0) Estimated GFR (Cockcroft-Gault) 72.7 BUN/Creatinine Ratio 14 (6-20) Glucose Level 118 mg/dL (70-99) Calcium Level 9.6 mg/dL (8.5-10.1) Total Bilirubin 2.7 mg/dL (0.2-1.0) Aspartate Amino Transf (AST/SGOT) 735 U/L (15-37) Alanine Aminotransferase (ALT/SGPT) 1368 U/L (14-59) Alkaline Phosphatase 237 U/L (46-116) Total Protein 7.6 g/dL (6.4-8.2) Albumin 3.6 g/dL (3.4-5.0) Albumin/Globulin Ratio 0.9 (1.0-1.7) DIRK TEIXEIRA MD Dec 09, 2016 07:52
[2016-12-09] MEDS ORDERED: ONDANSETRON ODT 4 MG TAB.RAPDIS. PO PRN (08:00)
[2016-12-09] MEDS: FAMOTIDINE 20 MG/2 ML VIAL IVP SCH ×2 (09:43→21:02)
[2016-12-09] MEDS: PARoxetine 20 MG TABLET PO SCH (09:45)
[2016-12-09 11:00] VITALS: BP 118/71
--- NOTE | 2016-12-09 12:40 | PDOC ---
Subjective: Subjective: Had a rough night but feeling better this morning. Didn't really want cream of wheat earlier but feels like advancing diet now. Recalls feeling quite fatigued/achy last weekend before GI symptoms began - took a 3 hour nap. 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 Has birds at home and children have lizards. Objective: Vital Signs: Vital Signs Date Time Temp Pulse Resp B/P (MAP) Pulse Ox O2 Delivery O2 Flow Rate FiO2 12/09/16 11:00 97.9 72 20 118/71 (87) 92 Room Air 97.9 Labs: Laboratory Tests Test 12/09/16 03:40 White Blood Count 6.1 x10^3/uL Red Blood Count 4.43 x10^6/uL Hemoglobin 13.0 g/dL Hematocrit 38.7 % Mean Corpuscular Volume 87 fL Mean Corpuscular Hemoglobin 29 pg Mean Corpuscular Hemoglobin Concent 34 g/dL Red Cell Distribution Width 13.9 % Platelet Count 254 x10^3/uL Neutrophils (%) (Auto) 67 % Lymphocytes (%) (Auto) 24 % Monocytes (%) (Auto) 7 % Eosinophils (%) (Auto) 1 % Basophils (%) (Auto) 1 % Neutrophils # (Auto) 4.1 x10^3uL Lymphocytes # (Auto) 1.5 x10^3/uL Monocytes # (Auto) 0.4 x10^3/uL Eosinophils # (Auto) 0.0 x10^3/uL Basophils # (Auto) 0.0 x10^3/uL Sodium Level 141 mmol/L Potassium Level 3.8 mmol/L Chloride Level 105 mmol/L Carbon Dioxide Level 30 mmol/L Anion Gap 6 Blood Urea Nitrogen 11 mg/dL Creatinine 0.8 mg/dL Estimated GFR (Cockcroft-Gault) 72.7 BUN/Creatinine Ratio 14 Glucose Level 118 mg/dL Calcium Level 9.6 mg/dL Total Bilirubin 2.7 mg/dL Aspartate Amino Transf (AST/SGOT) 735 U/L Alanine Aminotransferase (ALT/SGPT) 1368 U/L Alkaline Phosphatase 237 U/L Total Protein 7.6 g/dL Albumin 3.6 g/dL Albumin/Globulin Ratio 0.9 Imaging: MRCP 12/08/16 Impression: 1. Cystic lesion in the pancreatic tail incompletely evaluated due to lack of IV contrast, however shows no suspicious features. Differential diagnoses include pseudocyst, lymphoepithelial cyst, side branch IPMN. Several other scattered foci of T2 hyperintensity suggests side branch IPMN. 2. Moderate to severe hepatic steatosis. PE: GEN: NAD LUNGS: CTAB HEART: RRR ABD: S/ND/NT NEURO/PSYCH: A & O 3 A/P: Upper abd pain w/ n/v - improved Abnormal LFTs (worse) -Hepatitis panel negative; EBV and CMV pending -CT A/P: 1.8cm cystic abnormality in the distal body of the pancreas, hepatic steatosis -MRCP: cystic lesion in the pancreatic tail (no suspicious features - ddx: pseudocyst, lymphoepithelial cyst, side branch IPMN - suggested by other scattered foci), moderate - severe hepatic steatosis -h/o HLD on statin, no significant alcohol use -s/p cholecystectomy w/ normal IOC 11/17/16 -- Plans for outpt EUS (she [facility] to go to [facility]) - our office will arrange. Now relates prodrome of myalgia/fatigue. Will ask ID to see re: LFTs w/ exposure to exotic pets. ADAT. Stop IV H2 lianne. PAUL LOONEY Dec 09, 2016 12:40
[2016-12-09 14:56] VITALS: BP 113/58
[2016-12-09 19:00] VITALS: BP 144/81
[2016-12-09 23:00] VITALS: BP 137/137
[2016-12-10 03:00] VITALS: BP 135/91
[2016-12-10 05:02] LABS: ALBUMIN 3.4 g/dL (3.4-5.0); DIRECT BILIRUBIN 0.3 mg/dL (0.0-0.2); TOTAL BILIRUBIN 0.7 mg/dL (0.2-1.0); TOTAL PROTEIN 7.5 g/dL (6.4-8.2)
[2016-12-10 07:00] VITALS: BP 123/65
[2016-12-10] MEDS: PARoxetine 20 MG TABLET PO SCH (08:49)
[2016-12-10] MEDS: FAMOTIDINE 20 MG/2 ML VIAL IVP SCH (08:49)
--- NOTE | 2016-12-10 09:56 | PDOC ---
Infectious Disease Note ROS ROS Vital Sign Vital Signs Vital Signs Date Time Temp Pulse Resp B/P (MAP) Pulse Ox O2 Delivery O2 Flow Rate FiO2 12/10/16 07:00 97.9 71 20 123/65 (84) 97 Room Air 97.9 Physical Exam PHYSICAL EXAM Labs Lab Laboratory Tests Test 12/09/16 10:32 12/10/16 04:17 Acetaminophen Level < 2 mcg/ml (10-30) Acetaminophen Last Dose Date Unknown Acetaminophen Last Dose Time Unknown Total Bilirubin 0.7 mg/dL (0.2-1.0) Direct Bilirubin 0.3 mg/dL (0.0-0.2) Aspartate Amino Transf (AST/SGOT) 241 U/L (15-37) Alanine Aminotransferase (ALT/SGPT) 905 U/L (14-59) Alkaline Phosphatase 213 U/L (46-116) Total Protein 7.5 g/dL (6.4-8.2) Albumin 3.4 g/dL (3.4-5.0) Objective Assessment Transaminitis - improving N/V - better PCN allergy - rash arms/legs with amox ? Viral gastroenteritis Plan Plan of Care At this point she is improving some viral studies and autoimmune labs are pending Given her improvement will hold on any additional studies Can f/u in ID office if needed after GI eval complete but hopefully a benign virus Thank you # [id number] YASIR TOM MD Dec 10, 2016 09:56
--- NOTE | 2016-12-10 10:41 | CONS ---
DATE OF CONSULTATION: 12/10/2016 DATE OF SERVICE: 12/10/2016 PATIENT LOCATION: Room #510. REQUESTING PHYSICIAN: Dr. Myers. REASON FOR CONSULTATION: Transaminitis and exotic exposure. HISTORY OF PRESENT ILLNESS: The patient is a very pleasant 61-year-old female without significant past medical history, although she did undergo a cholecystectomy back on 11/17/2016. She states she had been feeling well until the awakening education intern on 12/07/2016 with abdominal pain accompanied by nausea and vomiting. She lives with her . Her was not ill. She denies eating any unusual foods. Vomiting up to the point where she could not hold down any water and she called the surgeon office out of concern that she had recent surgery and she was recommended to go to the Emergency Room for possible dehydration. She had normal white blood cell count and normal lipase, but her AST was 627 and ALT was 711, alkaline phosphatase was 184. She underwent a CT scan that showed a 1.8 cm cystic abnormality in the distal body of the pancreas and also noted hepatic steatosis. She had been afebrile since admission. She then underwent a MRCP which showed a cystic lesion in the pancreatic tail, incompletely evaluated due to lack of IV contrast; however, showed no suspicious features. 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 She does have birds at home. Her son, who does not live with her, has some reptiles in their house with some lizards, but she also has cats and dogs at her house. She states the animals have been well and her is well. Currently, the patient is sitting upright in bed, states she is feeling better. Her diet has advanced. She is not having any more nausea, vomiting, no fevers, chills or sweats. She has no sore throat or headaches. PAST MEDICAL HISTORY: Positive for cholecystitis as mentioned above, anxiety, obesity, hyperlipidemia. She has history of UTI. PAST SURGICAL HISTORY: Positive for tonsillectomy as well as the above-mentioned cholecystectomy. REVIEW OF SYSTEMS: Otherwise negative except for what is mentioned above. ALLERGIES: LISTED PENICILLIN. She states she took amoxicillin for a UTI and the AMOXICILLIN caused a rash on her arms and her legs. FAMILY HISTORY: Positive for colon cancer in mother. She has a sister who has some reflux. There is no Crohn disease or ulcerative colitis or other GI issues in the family. CURRENT MEDICATIONS: Include Pepcid, Paxil. Other meds are available and reviewed in the chart. PHYSICAL EXAMINATION: VITAL SIGNS: Afebrile, temperature 97.9, pulse 71, respirations 20, blood pressure 123/65, satting 97% on room air. CONSTITUTIONAL: She is very pleasant, cooperative. She is in no acute distress. HEENT: Pupils are equal and reactive. She has normal conjunctivae. Oral cavity, pharynx is clear. NECK: Supple with good range of motion. LUNGS: Clear to auscultation. HEART: S1, S2. ABDOMEN: Obese, soft, nontender, nondistended, positive bowel sounds. EXTREMITIES: No clubbing, cyanosis or gross edema. SKIN: Warm to touch without signs of rash. NEUROLOGIC: She is nonfocal, moves all extremities. PSYCHIATRIC: Affect is pleasant. LABORATORY DATA: White count 6.1, hemoglobin 13, platelets of 254 with a normal differential on 12/09/2016. Her AST today is 241, ALT is 905, alkaline phosphatase 213, which is improved. Acetaminophen screen was negative. Hepatitis screen was negative. Currently, she has an LISY, Mylicon antibodies, smooth muscle antibody, Melany-Acosta and ____, laboratory values all pending. Radiology reviewed in history of present illness. IMPRESSION: 1. Transaminitis, improved. 2. Nausea and vomiting, better. 3. Penicillin allergy with rash arms and legs with amoxicillin. 4. Questionable viral gastroenteritis. RECOMMENDATIONS: At this point, she is improving with some viral studies now, admitting labs are still pending. Given her improvement, we will hold on any additional studies at this point. She is welcome to follow up in the Infectious Disease office if needed after her GI evaluation is complete, but hopefully it is a benign virus. Thank you for asking me to participate in this patient's care. If you have any questions, please do not hesitate to contact me. YASIR TOM MD DR: JB/live JOB#: [id number] / [id number]
[2016-12-10 11:00] VITALS: BP 116/65
--- NOTE | 2016-12-10 11:44 | PDOC ---
Subjective: Subjective: Feeling better, tolerating diet w/o n/v or pain. Would like to DC today. Objective: Vital Signs: Vital Signs Date Time Temp Pulse Resp B/P (MAP) Pulse Ox O2 Delivery O2 Flow Rate FiO2 12/10/16 08:00 Room Air 12/10/16 07:00 97.9 71 20 123/65 (84) 97 97.9 Labs: Laboratory Tests Test 12/10/16 04:17 Total Bilirubin 0.7 mg/dL Direct Bilirubin 0.3 mg/dL Aspartate Amino Transf (AST/SGOT) 241 U/L Alanine Aminotransferase (ALT/SGPT) 905 U/L Alkaline Phosphatase 213 U/L Total Protein 7.5 g/dL Albumin 3.4 g/dL PE: GEN: NAD LUNGS: CTAB HEART: RRR ABD: S/ND/NT NEURO/PSYCH: A & O 3 A/P: Upper abd pain w/ n/v - resolved Abnormal LFTs - improved -Hepatitis panel negative; EBV, CMV, LISY, ASMA, AMA pending -CT A/P: 1.8cm cystic abnormality in the distal body of the pancreas, hepatic steatosis -MRCP: cystic lesion in the pancreatic tail (no suspicious features - ddx: pseudocyst, lymphoepithelial cyst, side branch IPMN - suggested by other scattered foci), moderate - severe hepatic steatosis ---> CA19-9 pending -h/o HLD on statin, no significant alcohol use -s/p cholecystectomy w/ normal IOC 11/17/16 -appreciate ID input - no additional testing indicated at this time -- DC per primary - okay w/ GI. Can recheck LFTs next week w/ PCP. Follow-up for lab results. Plans for outpt EUS (she prefers to go to [facility]) - our office will arrange. Also needs screening colonoscopy at some point. PAUL LOONEY Dec 10, 2016 11:44
--- NOTE | 2016-12-10 12:08 | PDOC3 ---
Discharge Summary* Date of Admission: Dec 08, 2016 Date of Discharge: Dec 10, 2016 Admitting Diagnosis Problems Medical Problems: (1) Abdominal pain Status: Acute (2) Pancreatic mass Status: Acute (3) Transaminitis Status: Acute Problems: Final Diagnosis Abdominal pain likely 2/2 viral gastroenteritis, Transaminitis and hyperbilirubinemia likely 2/2 pancreatic lesion which is likely IPMN, Hepatic steatosis, HLD, Depression, Prediabetes CONSULTS GI Infectious Disease Procedures CT Abdomen/Pelvis- approximately 1.8cm cystic abnormality in distal body of pancreas. Evaluation with MRI of abdomen with pancreatic protocol may be of benefit. Mild hepatic steatosis MRCP- cystic lesion in pancreatic tail incompletely evaluated due to lack of contrast, however no suspicious features. DDx includes pseudocyst, lymphoepithelial cyst, side branch IPMN. Moderate to severe hepatic steatosis. Brief Hospital Course DISCHARGE PHYSICAL EXAM General: Alert, Oriented X3, Cooperative, No acute distress HEENT: Atraumatic, PERRLA, EOMI, Mucous membr. moist/pink Lungs: Clear to auscultation, Normal air movement Heart: RRR, no rubs, no gallops, no murmurs Abdomen: Normal bowel sounds, Soft, No tenderness, No hepatosplenomegaly Extremities: No clubbing, No cyanosis, No edema Skin: No rashes, No significant lesion Neuro: Normal speech, Cranial nerves 3-12 NL Psych/Mental Status: Mental status NL, Mood NL Pt is a 61yo CF admitted for uncontrolled abdominal pain, transaminitis and cystic abnormality found in pancreas 1)Abdominal pain- resolved. Pt advanced diet yesterday with no issue. Nausea and vomiting have resolved. 2)Transaminitis- likely 2/2 cystic lesion on pancreas likely 2/2 IPMN. Was worsening yesterday but improved today. AST was 241 on discharge, ALT was 905. Hepatitis panel was normal. Other viral panels are pending. Imaging showed hepatic steatosis which could also be contributing. Statin will be held for now on discharge until diagnosis is confirmed. 3)Cystic lesion on pancreas- MRCP limited without contrast but no suspicious features seen. DDx incudes pseudo cyst, lymphoepithelial cyst, side brance IPMN which is favored based off imaging results. Pt had recent gallbladder surgery; cholangiogram showed contrast extravasation in gallbladder fossa but did not feel that it was a biliary leak. GI was following. Will be getting EUS on discharge that GI will set up 4)Hepatic steatosis 5)HLD- will hold pt's Crestor until diagnosis has been confirmed 6)Depression- pt's Paxil resumed 7)Prediabetes- HbA1C this admission was 5.7 Disposition/Orders: D/C to Home CONDITION AT DISCHARGE: Improved, Stable Diet: Regular Scheduled Paroxetine Hcl (Paxil), 20 MG PO DAILY, (Reported) Rosuvastatin Calcium (Crestor), 5 MG PO HS, (Reported) PCP Follow up with GI for EUS, follow up with Dr. Foley in the next 10-14 days to get CMP repeated. Time Spent Total time spent with patient [] minutes for coordination of care, counseling, and education. DIRK TEIXEIRA MD Dec 10, 2016 12:08
[2016-12-12 10:09] LABS: MITOCHONDRIAL ABDY 8.9 Units (0.0-20.0); SMOOTH MUSCLE AB 8 Units (0-19)
== END 2016-12-10 14:50 | disposition home or self-care (01) | DRG 392 ==
LOC: ER 19:16 → 5 NORTH 22:55
PROVIDERS: ADMIT Family Medicine; ATTEND Family Medicine
DX: A08.4 Viral intestinal infection, unspecified (principal); C25.3 Malignant neoplasm of pancreatic duct; Z68.41 Body mass index [BMI] 40.0-44.9, adult; K76.0 Fatty (change of) liver, not elsewhere classified; F32.9 Major depressive disorder, single episode, unspecified; K21.9 Gastro-esophageal reflux disease without esophagitis; R74.0 Nonspecific elevation of levels of transaminase and lactic acid dehydrogenase [LDH]; R73.03 Prediabetes; E78.5 Hyperlipidemia, unspecified; F41.9 Anxiety disorder, unspecified; E66.9 Obesity, unspecified; E80.6 Other disorders of bilirubin metabolism; R21 Rash and other nonspecific skin eruption; R74.8 Abnormal levels of other serum enzymes; R79.89 Other specified abnormal findings of blood chemistry; R94.5 Abnormal results of liver function studies; Z80.0 Family history of malignant neoplasm of digestive organs; Z83.3 Family history of diabetes mellitus; Z83.79 Family history of other diseases of the digestive system; Z87.440 Personal history of urinary (tract) infections; Z88.0 Allergy status to penicillin; Z90.49 Acquired absence of other specified parts of digestive tract
CPT/HCPCS: 36415; 74177; 74181; 80053; 80074; 80076; 83036; 83520; 83690; 83735; 84484; 85025; 86255; 86301; 86644; 86645; 86663; 86664; 93005; 96374; 96375; J2405; J2550; J7030; Q9967; S0028; 83516; 99285-25